=== PATIENT | female | born 1980 | race Caucasian/White ===

== ENCOUNTER → 2018-10-19 | Outpatient (REF) | payer OTHER, BC ==
[2018-10-22 00:06] LABS: HPV HYBRID CAPTURE II Negative (Negative)
== END ==
LOC: M SFHCWAGY 14:33
PROVIDERS: ATTEND Nurse Practitioner Women's Health
DX: Z12.4 Encounter for screening for malignant neoplasm of cervix (principal)
CPT/HCPCS: 87624; G0123

== ENCOUNTER → 2020-03-28 | Outpatient (REF) | payer OTHER, BC | LOC: M LAB REF 14:35 | PROVIDERS: ATTEND Physician Assistant | DX: R50.9 Fever, unspecified (principal); R53.83 Other fatigue ==

== ENCOUNTER → 2020-08-21 | Outpatient (CLI) | payer SELFPAY | LOC: M LABSMTC 10:00 | PROVIDERS: ATTEND Pediatrics | DX: Z20.822 Contact with and (suspected) exposure to COVID-19 (principal) ==

== ENCOUNTER 2023-06-16 07:40 | Emergency (ER) | payer BC ==
[~2023-06-16] VITALS: Ht 162.6 cm; Wt 96.5 kg
[2023-06-16] MEDS ORDERED: SUMA50TA2 PO (08:06)
[2023-06-16] MEDS ORDERED: OMEP1CAP73 PO (08:06)
[2023-06-16] MEDS ORDERED: LISI5TAB11 PO (08:06)
[2023-06-16] MEDS ORDERED: BUPR300T92 PO (08:06)
[2023-06-16] MEDS ORDERED: NALT50TA4 PO (08:06)
[2023-06-16] MEDS ORDERED: PRED10PA PO (08:06)
[2023-06-16] MEDS ORDERED: BACL10TA2 PO (08:06)
[2023-06-16] MEDS: diazePAM 10MG/2ML SYRINGE IV ONE (11:25)
[2023-06-16 11:35] LABS: BASO % 0.2 % (0.0-1.0); EOS % 0.1 % (0.0-3.0); HEMATOCRIT 37.5 % (36.0-47.0); HEMOGLOBIN 12.5 g/dl (12.0-15.5); LYMPH % 12.7 % (24.0-44.0); MEAN CORPUSCULAR HEMOGLOBIN 30.6 pg (27.0-33.0); MEAN CORPUSCULAR HGB CONC 33.3 g/dl (32.0-36.5); MEAN CORPUSCULAR VOLUME 91.7 fl (80.0-96.0); MONO # 0.2 10^3/uL (0.0-0.8); MONO % 2.7 % (2.0-8.0); NEUTROPHILS # 6.7 10^3/uL (1.5-8.5); NEUTROPHILS % 83.8 % (36.0-66.0); PLATELET COUNT, AUTOMATED 313 10^3/uL (150-450); RED BLOOD COUNT 4.09 10^6/uL (4.00-5.40); WHITE BLOOD COUNT 8.1 10^3/uL (4.0-10.0)
[2023-06-16 11:52] LABS: C REACTIVE PROTEIN QUANTITATIV < 0.40 MG/DL (<1.0)
[2023-06-16 11:53] LABS: ERYTHROCYTE SEDIMENTATION RATE 17 mm/hr (0-20)
[2023-06-16 11:54] LABS: BLOOD UREA NITROGEN 17 MG/DL (9-23); CALCIUM LEVEL 9.1 MG/DL (8.5-10.1); CARBON DIOXIDE LEVEL 27 MMOL/L (20-31); CHLORIDE LEVEL 103 MMOL/L (98-107); CREATININE FOR GFR 0.93 MG/DL (0.55-1.30); GLOMERULAR FILTRATION RATE > 60.0 (>58); GLUCOSE, FASTING 110 MG/DL (60-100); POTASSIUM SERUM 4.3 MMOL/L (3.5-5.1); SODIUM LEVEL 137 MMOL/L (136-145)
[2023-06-16] MEDS: KETOROLAC 30 MG/ML 1ML VIAL IV ONE (12:10)
[2023-06-16] MEDS: GABAPENTIN 300 MG CAP PO ONE (13:40)
[2023-06-16] MEDS: METHOCARBAMOL 1,000 MG/10 ML VIAL IV ONE (14:55)
[2023-06-16] MEDS ORDERED: METH-1164 PO (15:27)
[2023-06-16 15:42] VITALS: BP 168/98; TEMP 97.7; O2SAT 98
== END 2023-06-16 15:53 | disposition home or self-care (01) ==
LOC: M ED 07:40
DX: M48.02 Spinal stenosis, cervical region (principal); M62.830 Muscle spasm of back; R00.0 Tachycardia, unspecified; M54.2 Cervicalgia; E11.9 Type 2 diabetes mellitus without complications; I10 Essential (primary) hypertension; K21.9 Gastro-esophageal reflux disease without esophagitis; Z79.2 Long term (current) use of antibiotics; Z79.899 Other long term (current) drug therapy; Z79.52 Long term (current) use of systemic steroids
CPT/HCPCS: 72125; 80048; 85025; 85652; 86140; 93005; 96374; 96375; 99284; J1100; J1885; J2800; J3360

== ENCOUNTER → 2025-01-23 | Outpatient (REF) | payer BC ==
[~2025-01-23] MED LIST: BACL10TA2 PO; BUPR-766 PO; LISI5TAB11 PO; METH-1164 PO; NALT50TA4 PO; OMEP1CAP73 PO; PRED10PA PO; SUMA50TA2 PO
[2025-01-25 14:06] LABS: HPV APTIMA Not Detected (Not Detected)
== END ==
LOC: M SFHCWAGY 13:06
PROVIDERS: ATTEND Nurse Practitioner Family
DX: Z12.4 Encounter for screening for malignant neoplasm of cervix (principal); Z12.72 Encounter for screening for malignant neoplasm of vagina; Z77.9 Other contact with and (suspected) exposures hazardous to health; B37.9 Candidiasis, unspecified
CPT/HCPCS: 87624; G0123